=== PATIENT | male | born 1990 | race African-American/Black ===

== ENCOUNTER 2024-02-08 10:02 | Emergency (ER) | payer OTHER ==
[~2024-02-08] VITALS: Ht 167.6 cm; Wt 72.6 kg
[2024-02-08 13:01] VITALS: BP 125/66; TEMP 97.1; O2SAT 99
== END 2024-02-08 13:04 | disposition home or self-care (01) ==
LOC: M ED 10:02
DX: S50.02XA Contusion of left elbow, initial encounter (principal); Y92.9 Unspecified place or not applicable; Y93.89 Activity, other specified; Y99.9 Unspecified external cause status